=== PATIENT | male | born 1945 | race Caucasian/White ===

== ENCOUNTER 2017-04-21 07:01 | Day surgery (SDC) | payer BC, OTHER ==
[2017-04-16 14:31] VITALS: BMI 35.2
[2017-04-21] MEDS ORDERED: PROPOFOL 20 ML ONE ×2 (07:26→08:29)
[2017-04-21] MEDS ORDERED: LIDOCAINE HCL/PF 2% SDV 5ML VIAL ONE (07:26)
[2017-04-21] MEDS ORDERED: ROCURONIUM BROMIDE 50 MG/5 ML VIAL ONE (07:26)
[2017-04-21] MEDS ORDERED: SUCCINYLCHOLINE CHLORIDE 200 MG/10 ML VIAL ONE (07:26)
--- NOTE | 2017-04-21 07:39 | HP ---
History & Physical Update - History History: No Change - Physical Physical: No Change - Assessment Assessment: No Change - Plan Plan: No Change
[2017-04-21] MEDS ORDERED: ACETAMINOPHEN 1000 MG/100 ML VIAL (NON FORMULARY) IVPB ONE (07:40)
[2017-04-21] MEDS ORDERED: DEXTROSE 5%-0.45% SALINE 1,000 ML IV SCH (07:45)
[2017-04-21] MEDS ORDERED: MIDAZOLAM HCL 2 MG/2 ML SINGLE DOSE VIAL ONE (07:49)
[2017-04-21] MEDS ORDERED: ceFAZolin SODIUM 1 GM VIAL IVPB ONE (08:00)
[2017-04-21] MEDS ORDERED: mitoMYcin 40 MG/50 ML DISP.SYRIN (FOR OR USE) IC ONE (08:00)
[2017-04-21] MEDS ORDERED: ceFAZolin SODIUM 1 GM VIAL ONE (08:06)
[2017-04-21] MEDS ORDERED: PHENYLEPHRINE HCL 10 MG/1 ML SINGLE DOSE VIAL ONE (08:08)
[2017-04-21] MEDS ORDERED: DEXAMETHASONE SOD PHOSPHATE 4 MG/1 ML VIAL ONE (08:15)
[2017-04-21] MEDS ORDERED: GLYCOPYRROLATE 0.2 MG/1 ML VIAL ONE ×2 (08:40→16:25)
[2017-04-21] MEDS ORDERED: NEOSTIGMINE METHYLSULFATE 0.5 MG/1 ML - 10 ML MDV ONE (08:40)
--- NOTE | 2017-04-21 08:58 | OP ---
Operative Note - Note: Operative Date: 04/21/17 Pre-Operative Diagnosis: bladder cancer Operation: TURBT, large, instillation of mitomycin Post-Operative Diagnosis: Same as Pre-op
[2017-04-21] MEDS ORDERED: ONDANSETRON 4 MG/2 ML VIAL IVPUSH PRN (08:59)
[2017-04-21] MEDS ORDERED: ACETAMINOPHEN 325 MG TABLET (FP) PO PRN (08:59)
[2017-04-21] MEDS ORDERED: LACTATED RINGERS SOLUTION 1,000 ML IV SCH (09:00)
--- NOTE | 2017-04-21 09:27 | OP ---
DATE OF OPERATION: 04/21/2017 PREOPERATIVE DIAGNOSIS: Bladder cancer. POSTOPERATIVE DIAGNOSIS: Bladder cancer. PROCEDURE: Cystoscopy; transurethral resection of bladder tumor, large, greater than 5 cm; and instillation of Mitomycin. ANESTHESIA: General, Jose Hardy DO. ESTIMATED BLOOD LOSS: Minimal. SPECIMENS: Bladder tumor. FINDING: A large bladder tumor on the right side at the bladder neck, bigger than 5 cm in size, as confirmed on CAT scan. There was also a smaller tumor at the dome of the bladder. DRAINS: Pressley catheter. PREOPERATIVE INDICATIONS: The patient is a 71-year-old male. He is a smoker. He has a history of superficial bladder cancer. He comes with gross hematuria to the office. CT scan reveals a very large tumor in the bladder. No extravesical findings were noted on the CAT scan. Patient has a history of superficial bladder cancer. OPERATION: Patient was brought to the OR, placed on the table in supine position, given general anesthesia and IV antibiotics, and placed in the modified lithotomy position. The groin was prepped and draped sterilely. Cystoscopy was performed. The urethra appeared to be normal. The prostate was slightly enlarged. However, at the bladder neck, the entire bladder neck was covered with a papillary bladder tumor. The rest of the bladder beyond this area appeared to be normal except for 1 small papillary tumor at the dome. This tumor was resected using bipolar electrode, loop. It was down to its base, which encompassed the bladder neck from the 12 o'clock position all the way to the 8 o'clock position. The pieces were irrigated out and sent for pathology. The base was fulgurated. A small tumor, as mentioned before, was seen on the done. This was then resected and also fulgurated. Good hemostasis was maintained. No evidence of perforation was seen. An 18-[place] Pressley catheter was placed, and Mitomycin 50 mg in 40 mL of sterile water was instilled. The Pressley was then clamped. Patient was woken up. Kai [id number]
[2017-04-21] MEDS ORDERED: ACETAMINOPHEN INJECTION 100 ML IVPB ONE (09:38)
[2017-04-21 10:28] VITALS: TEMP 97.8
[2017-04-21 17:18] VITALS: BP 156/86; PULSE 68
--- NOTE | 2017-04-22 12:50 | PATH ---
Surgical Pathology Report Patient Name: BRINA HARMON [facility]. Rec. #: [id number] /Age/Gender: 1945 (Age: 71) / M Account: [id number] Location: [facility] SURGICAL Taken: 04/21/2017 Received: 04/21/2017 Reported: 04/22/2017 Physicians: David Nazario M.D. Specimen(s) Received BLADDER TUMOR Clinical History Bladder tumor Final Diagnosis BLADDER, TUR: LOW GRADE PAPILLARY UROTHELIAL CARCINOMA. NO LAMINA PROPRIA INVASION: NOT IDENTIFIED. MUSCULARIS PROPRIA (DETRUSOR): PRESENT, FREE OF CARCINOMA. CARCINOMA IN SITU (CIS): NOT IDENTIFIED. Electronically Signed Med Orozco M.D. Gross Description Received in formalin labeled "bladder tumor" is a 6.3 x 5.8 x 0.9 cm aggregate of casas-pink soft tissue fragments. The formalin is filtered and the specimen is entirely submitted in 11 cassettes. /04/21/201704/21/2017
== END 2017-04-21 17:19 | disposition home or self-care (01) ==
LOC: JASU-SURG 07:01
PROVIDERS: ATTEND Urology
PROC: 0T5B8ZZ Destruction of Bladder, Via Natural or Artificial Opening Endoscopic (ICD-10-PCS; principal; 2017-04-21 07:30)
DX: C67.9 Malignant neoplasm of bladder, unspecified (principal)
CPT/HCPCS: 51720; 52240; J9280; 88305-TC; 94760

== ENCOUNTER 2018-02-24 13:21 | Emergency (ER) | payer OTHER, BC ==
[2018-02-24 13:26] VITALS: PULSE 67; TEMP 98
[2018-02-24 14:26] VITALS: BP 133/72; BMI 33.9
--- NOTE | 2018-02-24 14:52 | PDOC ---
History of Present Illness - General Chief Complaint: Injury Stated Complaint: RT ARM LACERATION Time Seen by Provider: 02/24/18 14:21 Past History - Past Medical History Allergies/Adverse Reactions: Allergies Allergy/AdvReac Type Severity Reaction Status Date / Time levofloxacin [From Levaquin] Allergy Intermediate Swelling Verified 02/24/18 13: 23 Home Medications: Ambulatory Orders Atorvastatin Ca [Lipitor] 80 mg PO HS 04/16/17 Folic Acid/Multivit-Min/Lutein [Centrum Silver Chewable Tablet] 1 tab PO DAILY 04/16/17 Metoprolol Succinate [Toprol Xl -] 100 mg PO DAILY 04/16/17 Rivaroxaban [Xarelto] 1 each PO DAILY 04/16/17 Anemia: No Asthma: No Cancer: No Cardiac Disorders: Yes (blocked arteries) CVA: No COPD: Yes CHF: No Dementia: No Diabetes: No GI Disorders: No Disorders: Yes (polyps in bladder, peding biopsy results) HTN: Yes Hypercholesterolemia: Yes Liver Disease: No Seizures: No Thyroid Disease: No - Surgical History Abdominal Surgery: Yes (2 hernia) Cardiac Surgery: Yes (cabg 4 vessels 2014) - Immunization History Immunization Up to Date: Yes - Suicide/Smoking/Psychosocial Hx Smoking History: Current some day smoker Have you smoked in the past 12 months: No Number of Cigarettes Smoked Daily: 10 Information on smoking cessation initiated: No 'Breaking Loose' booklet given: 05/31/14 Hx Alcohol Use: No Drug/Substance Use Hx: No Substance Use Type: None *Physical Exam - Vital Signs Last Vital Signs Temp Pulse Resp BP Pulse Ox 98 F 67 16 133/72 100 02/24/18 13:23 02/24/18 13:23 02/24/18 13:23 02/24/18 13:23 02/24/18 13:23 *DC/Admit/Observation/Transfer Diagnosis at time of Disposition: Laceration - Discharge Dispostion Disposition: HOME Condition at time of disposition: Good Decision to Admit order: No - Referrals Referrals: Carlos Mcneil MD [Primary Care Provider] - - Patient Instructions Printed Discharge Instructions: DI for Laceration Repair With Dermabond Additional Instructions: You had your cut fixed today with dermabond. Your tetanus shot was updated today. Avoid soaking the arm. Keep it dry when showering. Please keep the area clean and pat dry. . You may take Tylenol or Motrin as needed for pain. Return to the emergency department sooner if you have area of redness around the site, purulent drainage, fevers, or have any changes in your symptoms. - Post Discharge Activity Forms/Work/School Notes: Back to Work
[2018-02-24] MEDS ORDERED: DIPHTH,PERTUSS(ACELL),TET 0.5 ML DISP.SYRIN IM ONE (14:56)
== END 2018-02-24 15:01 | disposition home or self-care (01) ==
LOC: JERFT 13:21
PROC: 3E0234Z Introduction of Serum, Toxoid and Vaccine into Muscle, Percutaneous Approach (ICD-10-PCS; principal; 2018-02-24)
PROC: 0HQDXZZ Repair Right Lower Arm Skin, External Approach (ICD-10-PCS; 2018-02-24)
PROC: 3E0234Z Introduction of Serum, Toxoid and Vaccine into Muscle, Percutaneous Approach (ICD-10-PCS; 2018-02-24)
DX: S41.119A Laceration without foreign body of unspecified upper arm, initial encounter (principal); W25.XXXA Contact with sharp glass, initial encounter; Y93.89 Activity, other specified; Y92.89 Other specified places as the place of occurrence of the external cause; Y99.8 Other external cause status; I25.10 Atherosclerotic heart disease of native coronary artery without angina pectoris; I10 Essential (primary) hypertension; Z95.1 Presence of aortocoronary bypass graft; Z72.0 Tobacco use; E78.00 Pure hypercholesterolemia, unspecified; J44.9 Chronic obstructive pulmonary disease, unspecified
CPT/HCPCS: 90715; 99281-25

== ENCOUNTER 2018-02-24 15:48 | Emergency (ER) | payer OTHER, BC ==
[2018-02-24 15:55] VITALS: BP 119/75; PULSE 66; TEMP 98.2; BMI 33.9
--- NOTE | 2018-02-24 15:56 | PDOC ---
Rapid Medical Evaluation Chief Complaint: Injury Time Seen by Provider: 02/24/18 15:55 Medical Evaluation: Allergies Allergy/AdvReac Type Severity Reaction Status Date / Time levofloxacin [From Levaquin] Allergy Intermediate Swelling Verified 02/24/18 15: 52 Vital Signs Temp Pulse Resp BP Pulse Ox 98.2 F 66 16 119/75 100 02/24/18 15:53 02/24/18 15:53 02/24/18 15:53 02/24/18 15:53 02/24/18 15:53 02/24/18 15:55 Pt c/o: abrasion to left forearm pt on exam: noted skin tear to forearm. FROM of extremity Pt ordered for: none. Given tdap p to proceed to the ED Discharge Disposition - Diagnosis Abrasion forearm - Referrals - Patient Instructions - Post Discharge Activity
--- NOTE | 2018-02-24 15:58 | PDOC ---
Suture Removal/Wound Check HPI - History of Present Illness Chief Complaint: Injury Stated Complaint: REVISIT/ FALL Time Seen by Provider: 02/24/18 15:55 History Source: Yes: Patient Exam Limitations: Yes: No Limitations Treated at: [facility] ED - Previous ED Treatment Type of procedure performed on last visit: Yes: Laceration Repair Tetanus Immunization: Yes: Up to Date - Onset of Previous Treatment Timing/Duration/Severity of Onset: reports: This morning Comment:: 02/24/18 16:23 Patient is a 72-year-old male onset Miguel, who presents to the emergency department today after getting glass to his left arm. He had a small laceration was repaired with Dermabond. Upon leaving the emergency department he tripped and fell on the sidewalk. He scraped his left forearm. The fall was unwitnessed by Hospital employees. Patient denies hitting his head, losing consciousness. Past History - Travel Traveled outside of the country in the last 30 days: No Close contact w/someone who was outside of country & ill: No - Past Medical History Allergies/Adverse Reactions: Allergies Allergy/AdvReac Type Severity Reaction Status Date / Time levofloxacin [From Levaquin] Allergy Intermediate Swelling Verified 02/24/18 15: 52 Home Medications: Ambulatory Orders Atorvastatin Ca [Lipitor] 80 mg PO HS 04/16/17 Folic Acid/Multivit-Min/Lutein [Centrum Silver Chewable Tablet] 1 tab PO DAILY 04/16/17 Metoprolol Succinate [Toprol Xl -] 100 mg PO DAILY 04/16/17 Rivaroxaban [Xarelto] 1 each PO DAILY 04/16/17 Anemia: No Asthma: No Cancer: No Cardiac Disorders: Yes (blocked arteries) CVA: No COPD: Yes CHF: No Dementia: No Diabetes: No GI Disorders: No Disorders: Yes (polyps in bladder, peding biopsy results) HTN: Yes Hypercholesterolemia: Yes Liver Disease: No Seizures: No Thyroid Disease: No - Surgical History Abdominal Surgery: Yes (2 hernia) Cardiac Surgery: Yes (cabg 4 vessels 2014) - Immunization History Immunization Up to Date: Yes - Suicide/Smoking/Psychosocial Hx Smoking History: Never smoked Have you smoked in the past 12 months: No Number of Cigarettes Smoked Daily: 20 Information on smoking cessation initiated: No 'Breaking Loose' booklet given: 08/14/14 Hx Alcohol Use: No Drug/Substance Use Hx: No Substance Use Type: None Suture Removal/Wound Check PE - Physical Exam Laceration/Wound Check Symptoms: reports: Bleeding (distal to the L forearm laceration) *Review of Systems - Review of Systems Able to Perform ROS?: Yes Constitutional: No: Chills, Fever, Weakness Neurological: No: Headache, Paresthesia, Weakness, Other (LOC, head trauma) Medical Decision Making - Medical Decision Making 02/24/18 15:58 *DC/Admit/Observation/Transfer Diagnosis at time of Disposition: Abrasion forearm Qualifiers: Encounter type: subsequent encounter Laterality: left Qualified Code(s): S50.812D - Abrasion of left forearm, subsequent encounter - Referrals Referrals: Carlos Mcneil MD [Primary Care Provider] - - Patient Instructions Printed Discharge Instructions: DI for Laceration Repair With Dermabond Additional Instructions: You had your cut fixed today with dermabond Your tetanus shot was updated today. Avoid soaking the arm. Keep it dry when showering. Please keep the area clean and pat dry. You may take Tylenol or Motrin as needed for pain. Return to the emergency department sooner if you have area of redness around the site, purulent drainage, fevers, or have any changes in your symptoms. - Post Discharge Activity
== END 2018-02-24 16:26 | disposition home or self-care (01) ==
LOC: JERFT 15:48
DX: S50.812D Abrasion of left forearm, subsequent encounter (principal); W01.110D Fall on same level from slipping, tripping and stumbling with subsequent striking against sharp glass, subsequent encounter
CPT/HCPCS: 99281-25

== ENCOUNTER 2019-01-06 12:29 | Day surgery (SDC) | payer BC ==
[2019-01-05 17:12] VITALS: BMI 34.4
[~2019-01-06 12:29] MED LIST: mitoMYcin 40 MG/50 ML DISP.SYRIN (FOR OR USE) IC ONE
[2019-01-06] MEDS ORDERED: ACETAMINOPHEN 1000 MG/100 ML VIAL (NON FORMULARY) IVPB ONE (14:11)
--- NOTE | 2019-01-06 14:13 | HP ---
History & Physical Update - History History: No Change - Physical Physical: No Change - Assessment Assessment: No Change - Plan Plan: No Change
[2019-01-06] MEDS ORDERED: DEXTROSE 5%-0.45% SALINE 1,000 ML IV SCH (14:15)
[2019-01-06] MEDS ORDERED: MIDAZOLAM HCL 2 MG/2 ML SINGLE DOSE VIAL ONE ×2 (14:27→14:56)
[2019-01-06] MEDS ORDERED: ceFAZolin SODIUM 1 GM VIAL ONE (14:59)
[2019-01-06] MEDS ORDERED: ceFAZolin SODIUM 1 GM VIAL IVPB ONE (15:00)
[2019-01-06] MEDS ORDERED: LIDOCAINE HCL 2% JELLY 10 ML CARTRIDGE ONE (15:18)
[2019-01-06] MEDS ORDERED: ONDANSETRON 4 MG/2 ML VIAL IVPUSH PRN (15:49)
[2019-01-06] MEDS ORDERED: LACTATED RINGERS SOLUTION 1,000 ML IV SCH (16:00)
[2019-01-06 17:40] VITALS: TEMP 98
[2019-01-06 20:07] VITALS: BP 141/80; PULSE 56
--- NOTE | 2019-01-10 16:16 | PATH ---
Surgical Pathology Report Patient Name: BRINA HARMON [facility]. Rec. #: [id number] /Age/Gender: 1945 (Age: 73) / M Account: [id number] Location: [facility] SURGICAL Taken: 01/06/2019 Received: 01/09/2019 Reported: 01/10/2019 Physicians: David Nazario M.D. Specimen(s) Received BLADDER TUMOR Clinical History Malignant neoplasm Final Diagnosis BLADDER TUMOR, TRANSURETHRAL RESECTION OF BLADDER TUMOR: LOW GRADE PAPILLARY UROTHELIAL CARCINOMA, NON-INVASIVE. MUSCULARIS PROPRIA IDENTIFIED. NO FLAT CARCINOMA IN SITU (CIS) IDENTIFIED. Comment: Case seen interdepartmentally. Findings discussed with Dr. Nazario. Electronically Signed Lori Lovelace M.D. Gross Description Received in formalin labeled "bladder tumor," is a 4.5 x 3.2 x 0.4 cm aggregate of [place] soft tissue fragments. The formalin is filtered and the specimen is entirely submitted in 4 cassettes. /01/09/2019 [facility]01/09/2019
--- NOTE | 2019-01-21 08:26 | OP ---
DATE OF OPERATION: 01/06/2019 PREOPERATIVE DIAGNOSIS: Bladder cancer at the dome. PROCEDURE: Cystoscopy, transurethral resection of bladder tumor, installation of mitomycin. SURGEON: David Nazario MD SPECIMEN: Bladder tumor. ESTIMATED BLOOD LOSS: Minimal. DRAINS: A Pressley catheter. PREOPERATIVE INDICATIONS: The patient is a 73-year-old male with a history of bladder cancer. He has a large recurrent tumor at the dome. OPERATION: The patient brought to the OR and placed on the table in the supine position. Given general anesthesia and IV antibiotics and placed in a modified lithotomy position. The groin was prepped and draped sterilely. Cystoscopy was performed. The distal urethra appeared to be normal. The prostate was enlarged. The bladder itself had a large papillary tumor at the dome. Both ureteral orifices were seen. No other significant tumors were seen. Using the resectoscope this large tumor which was greater than 5 cm in size was resected down to the base. The base was fulgurated. No evidence of bladder perforation was noted. Using the Ellik evacuator pieces were irrigated out. Good hemostasis was maintained. A Pressley catheter was placed; 50 mL of 40 mg of mitomycin was infused in the bladder, clamped and left in for 1 hour. Patient was woken up. DAVID NAZARIO M.D. [id number]
== END 2019-01-06 20:00 | disposition home or self-care (01) ==
LOC: JASU-SURG 12:29
PROVIDERS: ATTEND Urology
PROC: 0T5B8ZZ Destruction of Bladder, Via Natural or Artificial Opening Endoscopic (ICD-10-PCS; principal; 2019-01-06 14:00)
DX: C67.9 Malignant neoplasm of bladder, unspecified (principal)
CPT/HCPCS: 88307-TC; 94760

== ENCOUNTER 2020-09-15 16:40 | Emergency (ER) | payer BC, OTHER | END 2020-09-15 17:33 | disposition home or self-care (01) | LOC: JVIRT 16:40 | DX: U07.1 COVID-19 (principal) | CPT/HCPCS: C9803; Q3014-GT; U0003 ==